=== PATIENT | male | born 1955 | race Hispanic/Latino ===

== ENCOUNTER → 2021-08-02 | Outpatient (CLI) | payer OTHER, MEDICARE ==
[2021-08-02 09:44] LABS: INR 0.97 (0.85-1.15); PROTHROMBIN TIME 10.6 SEC (9.6-11.6)
[2021-08-02 09:45] LABS: PARTIAL THROMBOPLASTIN TIME 28.8 SEC (26.3-35.5)
== END | disposition home or self-care (01) ==
LOC: RAH 07:58
PROVIDERS: ATTEND Otolaryngology Plastic Surgery within the Head & Neck
DX: R22.1 Localized swelling, mass and lump, neck (principal); Z79.01 Long term (current) use of anticoagulants; Z79.899 Other long term (current) drug therapy
CPT/HCPCS: 36415; 38505; 42400; 76942; 85610; 85730; 88112; 88305; 88307; 88313

== ENCOUNTER → 2022-04-04 | Outpatient (CLI) | payer OTHER, MEDICARE | END | disposition home or self-care (01) | LOC: RAH 09:08 | PROVIDERS: ATTEND Internal Medicine Critical Care Medicine | DX: R91.8 Other nonspecific abnormal finding of lung field (principal) | CPT/HCPCS: 71250 ==

== ENCOUNTER 2024-11-30 05:51 | Day surgery (SDC) | payer OTHER, MEDICAID ==
[2024-11-30] VITALS (10 sets, daily range): BP systolic 99–131; BP diastolic 51–68; PULSE 46–63; RESP 15–18; TEMP 97.3–97.7
[~2024-11-30] VITALS: Ht 175.3 cm; Wt 80.7 kg
[~2024-11-30 05:51] MED LIST: AMLO-258 PO; DICL75TA5 PO; LOSA50TA64 PO; ROSU10TA72 PO
[2024-11-30] MEDS ORDERED: 0.9%NACL 1000ML 1,000 ML IV ONE (05:53)
[2024-11-30] MEDS ORDERED: proPOFol 10 MG/ML 20ML VIAL IV ONE (07:57)
[2024-12-01] MEDS ORDERED: CEPH500B PO (16:23)
[2024-12-01] MEDS ORDERED: PANT20TA PO (16:23)
== END 2024-11-30 09:22 | disposition home or self-care (01) ==
LOC: DAH 05:51 → ENDO 05:51
PROVIDERS: ATTEND Surgery
DX: Z12.11 Encounter for screening for malignant neoplasm of colon (principal); K92.1 Melena; K63.89 Other specified diseases of intestine; K57.30 Diverticulosis of large intestine without perforation or abscess without bleeding; K29.50 Unspecified chronic gastritis without bleeding; K31.89 Other diseases of stomach and duodenum; I10 Essential (primary) hypertension; E78.5 Hyperlipidemia, unspecified; E78.00 Pure hypercholesterolemia, unspecified; R12 Heartburn; Z79.82 Long term (current) use of aspirin; Z79.899 Other long term (current) drug therapy; Z98.890 Other specified postprocedural states; Z90.49 Acquired absence of other specified parts of digestive tract
CPT/HCPCS: 45380; 43239; J7030; J2704; A4620; A4215 ×2; A4223; A4222; A4221; A4663; A4606; J3490

== ENCOUNTER 2024-12-01 11:51 | Emergency (ER) | payer OTHER, MEDICAID ==
[~2024-12-01] VITALS: Ht 175.3 cm; Wt 80.7 kg
[2024-12-01 11:52] VITALS: TEMP 99.4
--- NOTE | 2024-12-01 12:19 | EKG ---
[facility] Test Date: 2024-12-01 Test Time: 12:16:30 Pat Name: FERNANDO BROWN Department: ED Room: Gender: M Call Center Support Representative: [facility] : 1955 Requested By: PATRICK OGDEN Order Number: [id number] Reading MD: Fernando Schulte Measurements Intervals [place] Rate: 56 P: 89 CT: 174 QRS: 74 QRSD: 130 T: 52 QT: 441 QTc: 412 Interpretive Statements Sinus rhythm Atrial premature complexes Right bundle branch block No previous ECG available for comparison Electronically Signed On 12-01-2024 16:58:28 CDT by Fernando Schulte Please click the below link to view image of tracing.
[2024-12-01 13:14] LABS: BASOPHILS # (AUTO) 0.05 K/uL (0.00-0.20); BASOPHILS % (AUTO) 0.5 % (0.0-5.0); EOSINOPHILS # (AUTO) 0.09 K/uL (0.00-0.70); EOSINOPHILS % (AUTO) 0.8 % (0.0-8.0); HEMATOCRIT 42.1 % (42-54); IMMATURE GRANULOCYTE ABSOLUTE 0.07 K/uL (0-1); LYMPHOCYTES # (AUTO) 1.6 K/uL (1.0-4.8); LYMPHOCYTES % (AUTO) 14.9 % (21.0-51.0); MEAN CORPUSCULAR HGB CONC 34.2 g/dL (32.0-36.0); MEAN CORPUSCULAR VOLUME 93.6 fL (79-99); MONOCYTES # (AUTO) 0.8 K/uL (0.1-1.0); MONOCYTES % (AUTO) 7.5 % (3.0-13.0); NEUTROPHILS # (AUTO) 8.3 K/uL (1.8-7.7); NEUTROPHILS % (AUTO) 75.7 % (40.0-77.0); PLATELET COUNT (AUTO) 274 K/uL (130-400); RED CELL DISTRIBUTION WIDTH 13.2 % (11.0-15.5); WHITE BLOOD COUNT (AUTO) 10.9 K/uL (4.8-10.8)
[2024-12-01 13:21] LABS: CREATININE 0.9 mg/dL (0.5-1.3); POTASSIUM 4.7 mmol/L (3.5-5.1)
[2024-12-01 13:25] LABS: ALBUMIN 3.7 g/dL (3.5-5.0); BILIRUBIN,DIRECT 0.1 mg/dL (0.0-0.3); BILIRUBIN,TOTAL 0.4 mg/dL (0.2-1.0); TOTAL PROTEIN, SERUM 7.6 g/dL (6.0-8.3)
--- NOTE | 2024-12-01 13:25 | ERN ---
ED Note History of Present Illness Stated Complaint: RECTAL BLEEDING Chief Complaint: Rectal Bleed Time Seen by MD: 11:53 Time Seen by Midlevel: 11:53 Dictation: Patient is a 69-year-old male with a history of hypertension, hyperlipidemia, brain tumor who presents to the emergency department with complaints of chills, nausea nonbloody vomiting, with diarrhea with bright red blood, low appetite, lower abdominal pain onset Thursday around 3:00 a.m.. Patient reports he spoke to his doctor and he had a endoscopy and colonoscopy done yesterday by Dr. Hernandez but is pending results. Reports that bleeding is now scant. Allergies: Coded Allergies: No Known Drug Allergies (Unverified Allergy, Unknown, 11/29/24) Home Meds Reported Medications Amlodipine Besylate (Amlodipine Besylate) 10 Mg Tablet, 1 TAB PO DAILY for 30 Days, #30 TAB 0 Refills 11/29/24 Rosuvastatin Calcium (Rosuvastatin Calcium) 10 Mg Tablet, 1 TAB PO HS for 30 Day s, #30 TAB 0 Refills 11/29/24 Losartan Potassium (Losartan Potassium) 50 Mg Tablet, 1 TAB PO DAILY for 30 D ays, #30 TAB 0 Refills 11/29/24 Diclofenac Sodium (Diclofenac Sodium) 75 Mg Tablet.dr, 1 TAB PO BID for 30 Days, #60 TAB 0 Refills 11/29/24 Past Medical History Past Medical History: Hypertension Surgical History: Other Surgical History Other: SURGICAL REMOVAL OF TUMORS ON SKIN RN Note Reviewed/Agreed w/PFSH: Yes Review of System Dictation Constitutional: Negative for fever, and weight loss positive for chest Eyes: Negative for injury, pain,redness, and discharge ENT: Negative for injury,pain or swelling Cardiovascular: Negative for chest pain, palpitations, and edema Respiratory: Negative for shortness of breath, cough, and wheezing, Abdomen/GI: Negative for constipation positive for abdominal pain, nausea, vomiting, diarrhea Back: Negative for injury and pain : Negative for injury, bleeding and discharge MS/Extremity: Negative for injury and deformity Skin: Negative for rash, and discoloration Neuro: Negative for headache, weakness, numbness, tingling, and seizure Psych: Negative for suicide ideation, homicidal ideation, and hallucinations Initial Vital Sign VS Vital Signs Date Time Temp Pulse Resp B/P (MAP) Pulse Ox O2 Delivery O2 Flow Rate FiO2 12/01/24 11:52 99.3 68 18 156/77 97 Room Air Physical Exam Dictation Vital Signs reviewed General Appearance: Alert, oriented x 3, no acute distress, well developed, nourished. Head and Face: non-traumatic. Eyes: PERRL, pink conjunctivas, eyelid no trauma, anterior chamber with arcus senilis. Ears: Pinnas intact and no signs of trauma or erythema ear canals clear and no discharge TM no erythema Nose: No discharge, no bleeding. Oropharynx: Mouth normal, tongue pink. pharynx clear,no erythema, tonsils no exudates, no abscesses noted, mucous membrane moist Neck: Supple, non-tender, no thyromegaly, no masses, no JVD, no bruits Breast:Deferred Chest:No tenderness, no crepitus, no paradoxical movement, no retractions Lungs:Clear, well-ventilated, symmetric, no rales, no wheezing, no rhonchi, no stridor, good breath sounds bilaterally Heart: Regular rate, regular rhythm, no murmur, no gallops Vascular: no peripheral edema, Abdomen: Soft, positive bowel sounds, nondistended, no guarding, nontender, no rebound, no masses no hepatomegaly, no splenomegaly, no Mock's sign, no hernias. Rectal: Deferred Genital: Deferred Neurological: Normal speech, motor function intact, sensory function intact Musculoskeletal: Neck nontender, full range of motion, back nontender, full range of motion, Extremities: nontender, full range of motion Skin: Color pink, dry, no turgor, no rash, no lacerations, no abrasions, no contusions. Lymphatic: Deferred Results (Laboratory/Radiology) Laboratory/Radiology Laboratory Tests Test 12/01/24 12:49 12/01/24 13:38 12/01/24 15:09 White Blood Count 10.9 K/uL (4.8-10.8) H Red Blood Count 4.50 MIL/uL (4.50-6.20) Hemoglobin 14.4 g/dL (14.0-18.0) Hematocrit 42.1 % (42-54) Mean Corpuscular Volume 93.6 fL (79-99) Mean Corpuscular Hemoglobin 32.0 pg (27.0-33.0) Mean Corpuscular Hemoglobin Concent 34.2 g/dL (32.0-36.0) Red Cell Distribution Width 13.2 % (11.0-15.5) Platelet Count 274 K/uL (130-400) Mean Platelet Volume 9.3 fL (7.5-10.5) Immature Granulocyte % (Auto) 0.6 % (0-1) Neutrophils (%) (Auto) 75.7 % (40.0-77.0) Lymphocytes (%) (Auto) 14.9 % (21.0-51.0) L Monocytes (%) (Auto) 7.5 % (3.0-13.0) Eosinophils (%) (Auto) 0.8 % (0.0-8.0) Basophils (%) (Auto) 0.5 % (0.0-5.0) Neutrophils # (Auto) 8.3 K/uL (1.8-7.7) H Lymphocytes # (Auto) 1.6 K/uL (1.0-4.8) Monocytes # (Auto) 0.8 K/uL (0.1-1.0) Eosinophils # (Auto) 0.09 K/uL (0.00-0.70) Basophils # (Auto) 0.05 K/uL (0.00-0.20) Absolute Immature Granulocyte (auto 0.07 K/uL (0-1) Nucleated Red Blood Cells 0.0 % (0.0-0.19) Prothrombin Time 10.5 SEC (9.6-11.6) Prothromb Time International Ratio 0.99 (0.85-1.15) Activated Partial Thromboplast Time 27.5 SEC (26.3-35.5) Sodium Level 139 mmol/L (136-145) Potassium Level 4.7 mmol/L (3.5-5.1) Chloride Level 105 mmol/L (101-111) Carbon Dioxide Level 25 mmol/L (21-32) Blood Urea Nitrogen 17 mg/dL (7-18) Creatinine 0.9 mg/dL (0.5-1.3) Glomerular Filtration Rate Calc 92 mL/min (>90) Random Glucose 104 mg/dL (70-105) Total Calcium 8.9 mg/dL (8.5-10.1) Total Bilirubin 0.4 mg/dL (0.2-1.0) Direct Bilirubin 0.1 mg/dL (0.0-0.3) Aspartate Amino Transf (AST/SGOT) 21 U/L (10-37) Alanine Aminotransferase (ALT/SGPT) 29 U/L (12-78) Alkaline Phosphatase 110 U/L (50-136) Total Creatine Kinase 67 U/L (21-232) Troponin I High Sensitivity 7 ng/L (4-75) Total Protein 7.6 g/dL (6.0-8.3) Albumin 3.7 g/dL (3.5-5.0) Lipase 14 U/L (16-77) L Urine Color LIGHT-YELLOW (YELLOW) Urine Appearance CLEAR (CLEAR) Urine pH 5.5 (5.0-8.0) Urine Specific [place] 1.020 (1.001-1.031) Urine Protein NEGATIVE mg/dL (NEGATIVE) Urine Glucose (UA) NEGATIVE mg/dL (NEGATIVE) Urine Ketones NEGATIVE mg/dL (NEGATIVE) Urine Occult Blood NEGATIVE (NEGATIVE) Urine Nitrate NEGATIVE (NEGATIVE) Urine Bilirubin NEGATIVE mg/dL (NEGATIVE) Urine Urobilinogen 0.2 mg/dL (0.2-1.0) Urine Leukocyte Esterase NEGATIVE [place]/uL Stool Occult Blood POSITIVE (NEGATIVE) H SERVICE 1325 REASON: lower abd pain ORDERING PHYSICIAN: PATRICK OGDEN PROCEDURE: ABD PEL W - CT ABDOMEN/PELVIS W/CONTRAST CT ABDOMEN/PELVIS W/CONTRAST HISTORY: Lower abdominal pain COMPARISON: None TECHNIQUE: Multiple sequential axial images of the abdomen and pelvis were obtained from the dome of the diaphragm through symphysis pubis. Patient was given 75 cc of Omnipaque through intravenous route. Oral contrast was not given. FINDINGS: No pleural effusion is seen bilaterally. There is no evidence of parenchymal disease or pulmonary nodule of the visualized lower lungs. Degenerative changes of the thoracolumbar spine are present. The heart is not enlarged. Gallbladder is moderately distended with gallbladder wall thickening. The liver, spleen, adrenal glands and pancreas are unremarkable. There is no evidence of hydronephrosis bilaterally. No evidence of renal stone is seen. Fecal material is seen in the colon. There are normal size retroperitoneal and mesenteric lymph nodes. No ascites is seen. Atherosclerotic changes are present. Appendix is not well-seen limiting evaluation. There is diverticulosis. Pelvic sidewalls are symmetric bilaterally. Bladder is poorly distended. There is fat stranding adjacent to the bladder. If there is clinical suspicion for cystitis, urinalysis correlation may be helpful. IMPRESSION: 1. Moderately distended gallbladder with gallbladder wall thickening. Diverticulosis. There is fat stranding adjacent to the bladder. If there is clinical suspicion for cystitis, urinalysis correlation may be helpful. Labs Reviewed?: Yes EKG: (+) rhythm (Sinus rhythm) EKG Comment: Date:12/01/2024 Time:1216 Ventricular rate:56 [place] interval:174 QRS duration:130 QT/QTc:441 EKG interpretation: Sinus rhythm, PACs, right bundle-branch block Reviewed by ED Attending no STEMI ED Course ED Course Orders Procedure Category Date Status Time Cbc With Differential LAB 12/01/24 Complete 12:05 Urinalysis Profile LAB 12/01/24 Complete 12:05 12 Lead Ekg Tracing- EKG 12/01/24 Complete Technical 12:05 0.9%Nacl 1000ml (Ns PHA 12/01/24 Complete 1000ml) 12:30 Ondansetron 4mg Inj PHA 12/01/24 Complete (Zofran 4mg Inj) 12:30 Pantoprazole 40mg Inj PHA 12/01/24 Complete (Protonix 40mg Inj 12:30 Creatine Kinase, Total LAB 12/01/24 Complete 12:05 Lipase LAB 12/01/24 Complete 12:05 Basic Metabolic Panel LAB 12/01/24 Complete 12:05 Hepatic Function Panel LAB 12/01/24 Complete 12:05 Troponin I High LAB 12/01/24 Complete Sensitivity 12:05 Pt And Ptt LAB 12/01/24 Complete 12:10 Occult Blood Stool LAB 12/01/24 Complete Single Only 12:10 Ct Abdomen/Pelvis CT 12/01/24 Resulted W/Contrast 13:25 Iohexol (Omnipaque) PHA 12/01/24 Complete 13:49 Stool Panel Gi By Pcr LAB 12/01/24 In Process 13:49 Morphine 4mg Syg PHA 12/01/24 Complete (Morphine 4mg Syg) 15:00 Ceftriaxone 1g Vial PHA 12/01/24 Complete (Rocephine 1g Inj) 15:00 Current Medications Medications (Trade) Dose Ordered Sig/Barb Route PRN Reason Start Time Stop Time Status Last Admin Dose Admin Ceftriaxone Sodium (ROCEphine 1G INJ) 1 gm ONCE ONCE IVPB 12/01/24 15:00 12/01/24 15:03 DC 12/01/24 15:35 Iohexol (Omnipaque) 75 ml STK-MED ONCE IV 12/01/24 13:49 12/01/24 13:49 DC Morphine Sulfate (morPHINE 4MG SYG) 4 mg ONCE ONCE IVP 12/01/24 15:00 12/01/24 15:03 DC 12/01/24 15:35 Ondansetron HCl (zoFRAN 4MG INJ) 4 mg ONCE ONCE IVP 12/01/24 12:30 12/01/24 12:31 DC 12/01/24 13:35 Pantoprazole Sodium (PROTonix 40MG INJ) 40 mg ONCE ONCE IVP 12/01/24 12:30 12/01/24 12:31 DC 12/01/24 13:35 Sodium Chloride 1,000 ml @ 0 mls/hr ONCE ONCE IV 12/01/24 12:30 12/01/24 12:31 DC 12/01/24 13:35 Vital Signs Date Time Temp Pulse Resp B/P (MAP) Pulse Ox O2 Delivery O2 Flow Rate FiO2 12/01/24 11:52 99.3 68 18 156/77 97 Room Air Medical Decision Making MDM MDM: Patient is a 69-year-old male with a history of hypertension, hyperlipidemia, brain tumor who presents to the emergency department with complaints of chills, nausea nonbloody vomiting, with diarrhea with bright red blood, low appetite, lower abdominal pain onset Thursday around 3:00 a.m.. Patient reports he spoke to his doctor and he had a endoscopy and colonoscopy done yesterday by Dr. Hernandez but is pending results. Reports that bleeding is now scant. Showed mild leukocytosis, no anemia,, normal platelets, chemistry showed no electrolyte imbalance, negative lipase, negative troponin, coagulation unremarkable, urinalysis unremarkable, stool occult positive. CT abdomen and pelvis showed moderately distended gallbladder. Patient with no upper abdominal pain, no tenderness, negative Mock's sign. Diverticulosis. Fat stranding adjacent to the bladder. We will start patient on antibiotics for cystitis in a pending urine culture. Labs and imaging discussed with the patient who at this time would like to be discharged and follow up with PCP. Patient reports im proving pain. Patient with normal H&H and reports now that bleeding is better. Stool was watery and yellow. Patient will be discharged on antibiotics. Patient instructed to return if symptoms worsen. Differential diagnosis: Gastroenteritis, GI bleed, diverticulosis, electrolyte imbalance, Need for hospitalization: Patient does not meet criteria for hospitalization. There are no social concerns with this patient. DX & DISP Disposition: Discharge Departure Impression: Primary Impression: Cystitis Additional Impressions: Gastroenteritis, Nausea and vomiting Condition: Stable Scripts Pantoprazole Sodium (Protonix) 20 Mg Tablet.dr 1 TAB PO DAILY for 30 Days, #30 TAB 0 Refills Prov: PATRICK OGDEN 12/01/24 Cephalexin Monohydrate (Keflex) 500 Mg Cap 500 MG PO BID for 7 Days, #14 CAP Prov: PATRICK OGDEN 12/01/24 Additional Instructions: Please take your medications as prescribed. Follow up with your track manager for your of results. If symptoms worsen, you develop severe nausea and vomiting, weakness, fevers please return to ER. FOLLOW-UP WITH PRIMARY CARE PROVIDER IN 1 TO 2 DAYS. TAKE MEDICATIONS DIRECTED HERE IN THE EMERGENCY ROOM. OKAY TO CONTINUE HOME MEDICATIONS UNLESS OTHERWISE DISCUSSED DURING YOUR VISIT IN THE EMERGENCY ROOM TODAY. RETURN TO YOUR NEAREST EMERGENCY ROOM IF SYMPTOMS WORSEN OR IF THERE IS NO IMPROVEMENT. CALL 911 IF YOU NEED IMMEDIATE ASSISTANCE. TAKE TYLENOL OR MOTRIN [id number] NEEDED AND IF NO CONTRAINDICATIONS ARE PRESENT. INCREASE ORAL HYDRATION. A WOUND CULTURE OR URINE CULTURE WAS ORDERED HERE IN THE EMERGENCY ROOM DEPARTMENT PLEASE FOLLOW-UP WITH PRIMARY CARE PROVIDER AND ADVISE THEM TO GET REPEAT PORTS FROM OUR FACILITY. IF YOU HAD ANY JHONNY WRAP/SPLINTS THAT WERE APPLIED HERE, PLEASE DO NOT REMOVE THEM UNTIL YOU SEE YOUR PRIMARY CARE OR SPECIALTY. Referrals: NEPTALI CAICEDO MD (PCP) Time of Disposition: 16:10 I have reviewed the case, and I agree with, Diagnosis and Plan PATRICK OGDEN December 01, 2024 13:25
[2024-12-01] MEDS: ondanSETRON 4MG INJ IVP ONE (13:35)
[2024-12-01] MEDS: PANTOPrazole 40 MG/VIAL IVP ONE (13:35)
[2024-12-01] MEDS: 0.9%NACL 1000ML 1,000 ML IV ONE (13:35)
[2024-12-01 13:37] LABS: INR 0.99 (0.85-1.15); PROTHROMBIN TIME 10.5 SEC (9.6-11.6)
[2024-12-01 13:39] LABS: PARTIAL THROMBOPLASTIN TIME 27.5 SEC (26.3-35.5)
[2024-12-01] MEDS ORDERED: IOHEXOL-350 75 ML VIAL IV ONE (13:49)
[2024-12-01 14:08] LABS: APPEARANCE,URINE CLEAR (CLEAR); BILIRUBIN,URINE NEGATIVE (NEGATIVE); COLOR,URINE LIGHT-YELLOW (YELLOW); GLUCOSE, URINE (UA) NEGATIVE (NEGATIVE); KETONES,URINE NEGATIVE (NEGATIVE); LEUKOCYTE ESTERASE ,URINE NEGATIVE Leu/uL (NEGATIVE); NITRATE,URINE NEGATIVE (NEGATIVE); OCCULT BLOOD,URINE NEGATIVE (NEGATIVE); PH,URINE 5.5 (5.0-8.0); PROTEIN,URINE NEGATIVE (NEGATIVE); UROBILINOGEN,URINE 0.2 mg/dL (0.2-1.0)
[2024-12-01 14:13] LABS: ADD UA MICROSCOPIC NO
--- NOTE | 2024-12-01 14:18 | HMCIMG ---
CT ABDOMEN/PELVIS W/CONTRAST HISTORY: Lower abdominal pain COMPARISON: None TECHNIQUE: Multiple sequential axial images of the abdomen and pelvis were obtained from the dome of the diaphragm through symphysis pubis. Patient was given 75 cc of Omnipaque through intravenous route. Oral contrast was not given. FINDINGS: No pleural effusion is seen bilaterally. There is no evidence of parenchymal disease or pulmonary nodule of the visualized lower lungs. Degenerative changes of the thoracolumbar spine are present. The heart is not enlarged. Gallbladder is moderately distended with gallbladder wall thickening. The liver, spleen, adrenal glands and pancreas are unremarkable. There is no evidence of hydronephrosis bilaterally. No evidence of renal stone is seen. Fecal material is seen in the colon. There are normal size retroperitoneal and mesenteric lymph nodes. No ascites is seen. Atherosclerotic changes are present. Appendix is not well-seen limiting evaluation. There is diverticulosis. Pelvic sidewalls are symmetric bilaterally. Bladder is poorly distended. There is fat stranding adjacent to the bladder. If there is clinical suspicion for cystitis, urinalysis correlation may be helpful. IMPRESSION: 1. Moderately distended gallbladder with gallbladder wall thickening. Diverticulosis. There is fat stranding adjacent to the bladder. If there is clinical suspicion for cystitis, urinalysis correlation may be helpful. CT was performed with one or more following dose reduction techniques: automated exposure control, adjustment of the mA and kv according to patient's size, or use of a iterative reconstruction technique.
[2024-12-01] MEDS: cefTRIAXone 1G VIAL IVPB ONE (15:35)
[2024-12-01] MEDS: morPHINE 4 MG SYG IVP ONE (15:35)
[2024-12-01] MEDS ORDERED: CEPH500B PO (16:23)
[2024-12-01] MEDS ORDERED: PANT20TA PO (16:23)
[2024-12-01 16:48] VITALS: BP 147/68; PULSE 80; RESP 20; O2SAT 99
[2024-12-04 14:10] LABS: C DIFFICILE TOXIN A/B Not Detected (Not Detected); ENTEROAGGREGATIVE ECOLI Detected (Not Detected); GIARDIA LAMBLIA Not Detected (Not Detected); PLESIOMONAS SHIGELOIDES Not Detected (Not Detected); SAPOVIRUS Not Detected (Not Detected); SHIGELLA/ENTEROINVASIVE E COLI Not Detected (Not Detected); VIBRIO Not Detected (Not Detected); VIBRIO CHOLERAE Not Detected (Not Detected)
== END 2024-12-01 16:47 | disposition home or self-care (01) ==
LOC: EDH 11:51
DX: N30.90 Cystitis, unspecified without hematuria (principal); K52.9 Noninfective gastroenteritis and colitis, unspecified; R11.2 Nausea with vomiting, unspecified; I10 Essential (primary) hypertension; Z79.899 Other long term (current) drug therapy
CPT/HCPCS: 99285; 74177; 96374; 96375; 96361; 82270; 82550; 80076; 84484; 80048; 83690; 85025; 85610; 85730; 87086; 81003; 36415; 93005; 87507; J7030; J0696; J2405; J2270; J2470; Q9967